=== PATIENT | female | born 1945 | race Hispanic/Latino ===

== ENCOUNTER 2018-08-31 12:21 | Inpatient (IN) | payer MEDICARE ==
[~2018-08-31] VITALS: Ht 154.9 cm; Wt 54.0 kg
[2018-08-31] VITALS (22 sets, daily range): BP systolic 155–204; BP diastolic 51–108
[2018-08-31] MEDS ORDERED: LABETALOL HCL 5 MG/ML 20ML VIAL IV STA ×2 (12:45→13:30)
[2018-08-31] MEDS ORDERED: NITROGLYCERIN 2% OINT 1 GM PKT TOP ONE (12:45)
[2018-08-31 12:57] LABS: BASOPHILS # (AUTO) 0.1 (0.0-0.1); EOSINOPHILS # (AUTO) 0.1 (0.0-0.4); HEMATOCRIT 37.4 % (34.2-44.1); LYMPHOCYTES # (AUTO) 1.2 (1.0-3.2); MEAN CORPUSCULAR HEMOGLOBIN 30.4 pg (28-32); MEAN CORPUSCULAR HGB CONC 32.1 g/dL (31-35); MEAN CORPUSCULAR VOLUME 94.7 fL (81-99); MONOCYTES # (AUTO) 0.8 (0.2-0.8); MONOCYTES % 8.6 % (4.4-11.3); NEUTROPHILS # (AUTO) 6.7 (2.1-6.9); NEUTROPHILS % 75.1 % (38.7-80.0); PLATELET COUNT 218 x10e3/uL (140-360); RED BLOOD COUNT 3.95 x10e6/uL (3.6-5.1); RED CELL DISTRIBUTION WIDTH 15.6 % (11.7-14.4)
[2018-08-31 13:02] LABS: INR 1.05; PROTHROMBIN TIME 14.7 seconds (11.9-14.5)
[2018-08-31 13:03] LABS: PARTIAL THROMBOPLASTIN TIME 35.6 seconds (23.8-35.5)
[2018-08-31 13:13] LABS: ALBUMIN 3.8 g/dL (3.5-5.0); ALKALINE PHOSPHATASE 97 IU/L (40-150); ANION GAP 23.5 mmol/L (8-16); BLOOD UREA NITROGEN 69 mg/dL (7-26); BUN/CREATININE RATIO 8 (6-25); CALCIUM 9.3 mg/dL (8.4-10.2); CARBON DIOXIDE 24 mmol/L (22-29); CHLORIDE 94 mmol/L (98-107); CREATINE KINASE 22 IU/L (29-168); CREATININE, SERUM 8.86 mg/dL (0.57-1.11); EST GLOMERULAR FILTRATION RATE 4 ML/MIN (60-); GLUCOSE 73 mg/dL (74-118); MAGNESIUM 2.4 MG/DL (1.3-2.1); SODIUM 135 mmol/L (136-145)
--- NOTE | 2018-08-31 13:14 | Diagnostic Imaging Report ---
Examination: Single AP view of the chest. COMPARISON: None. INDICATION: Hypertension DISCUSSION: Lungs are well-inflated. Small right pleural effusion with adjacent right lower lobe airspace disease likely passive atelectasis. No consolidations. Enlargement of the cardiac silhouette with prominence of the perihilar pulmonary interstitium. No acute osseous abnormality. IMPRESSION: Enlargement of the cardiac silhouette with interstitial pulmonary edema and a small right pleural effusion. Signed by: Dr. Rizwan Valentin M.D. on 08/31/2018 1:11 PM
[2018-08-31 13:23] LABS: ALANINE AMINOTRANSFERASE < 6 IU/L (0-55)
[2018-08-31 13:24] LABS: POTASSIUM 6.5 mmol/L (3.5-5.1)
[2018-08-31] MEDS ORDERED: DEXTROSE 50% SYRINGE 50 ML IV STA (13:31)
[2018-08-31] MEDS ORDERED: SODIUM BICARBONATE 8.4% INJ 50 ML SYR IV STA (13:31)
--- NOTE | 2018-08-31 13:36 | Diagnostic Imaging Report ---
History:Hypertension, AMS Comparison studies:None Technique: Axial images were obtained from the skull base to the vertex. Coronal and sagittal images reconstructed from the axial data. Intravenous contrast: None Dose modulation, iterative reconstruction, and/or weight based adjustment of the mA/kV was utilized to reduce the radiation dose to as low as reasonably achievable. Findings: Scalp/skull: No abnormalities. Extra-axial spaces: No masses. No fluid collections. Brain sulci: Mildly prominent. Ventricles: Mild compensatory dilatation. No hydrocephalus. Parenchyma: Scattered small hypodensities in the supratentorial white matter are small vessel ischemic changes. Cortical-based hypodensity at the left cuneus with associated volume loss. Chronic lacunar infarcts at the left paracentral nicki, right cerebellum, left globus pallidus , bilateral putamina and thalami. No masses, hemorrhage or acute cortical vascular insults. Sellar/suprasellar region: No abnormalities. Craniocervical junction: Patent foramen magnum. No Chiari one malformation. Incidental findings: Atherosclerotic calcifications in the carotid siphons . Impression: No acute abnormalities. Chronic findings: 1. Mild generalized volume loss. 2. Mild supratentorial white matter small vessel ischemic changes. 3. Remote insult in the left cuneus in the [employer] DELIV[employer] distribution. 4. Multiple posterior fossa bilateral basal ganglia chronic lacunar infarcts. Signed by: DR Rick Tripp M.D. on 08/31/2018 1:33 PM
[2018-08-31] MEDS ORDERED: CLONIDINE HCL 0.1 MG TAB PO ONE ×2 (13:45→14:00)
[2018-08-31] MEDS ORDERED: CALCIUM GLUCONATE 10% INJ 4.65 MEQ in SODIUM CHLORIDE 0.9% 50ML 50 ML IV ONE (13:45)
[2018-08-31] MEDS ORDERED: INSULIN REGULAR, HUMAN 100 UNIT/1 ML 3ML VIAL IV ONE (13:45)
[2018-08-31] MEDS ORDERED: CLONIDINE HCL 0.1 MG TAB ONE (13:57)
[2018-08-31] MEDS ORDERED: SODIUM BICARBONATE 8.4% SYRING 50 ML ONE (13:57)
[2018-08-31] MEDS ORDERED: ONDANSETRON HCL INJ 2 MG/ML VIAL IV PRN ×2 (14:45→19:15)
[2018-08-31] MEDS ORDERED: DEXTROSE 50% SYRINGE 50 ML IV PRN ×2 (14:45→19:15)
[2018-08-31 14:46] LABS: CLARITY,URINE CLEAR (CLEAR); COLOR,URINE YELLOW (YELLOW); LEUKOCYTE ESTERASE ,URINE NEGATIVE (NEGATIVE); NITRITE,URINE NEGATIVE (NEGATIVE); PROTEIN,URINE DIPSTICK 2+ (NEGATIVE)
[2018-08-31 14:47] LABS: BILIRUBIN,URINE NEGATIVE (NEGATIVE); KETONES,URINE NEGATIVE (NEGATIVE); URINE UROBILINOGEN 0.2 mg/dL (0.2 - 1)
[2018-08-31 14:53] LABS: EPITHELIAL CELLS,URINE FEW /LPF; RBC,URINE 0-5 /HPF (0-5)
--- OUTSIDE RECORDS SUMMARY | 2018-08-31 14:56 | XMS REPORT ---
[facility] Address Unknown Phone Unavailable Care Team Providers Care Meat Stuffer Name Role Phone Roc JIMENES Unavailable Unavailable Problems This patient has no known problems. Allergies, Adverse Reactions, Alerts This patient has no known allergies or adverse reactions. Medications This patient has no known medications. Results Test Description Test Time Test Comments Text Results Atomic Results Result Comments CT BRAIN WO 2018-08-31 13:27:00 [facility] [address] [address] Patient Name: CHRIS MATIAS MR #: [id number] : 1945 Age/Sex: 72/F Req #: [id number] Adm Physician: Ordered by: ISAAC JIMENES MD Report #: [id number] Location: ER Room/Bed: Procedure: [id number] CT/CT BRAIN WO Exam Date: 08/31/18 Exam Time: 1309 REPORT STATUS: Signed History:Hypertension, AMS Comparison studies:None Techn ique: Axial images were obtained from the skull base to the vertex. Coronal and sagittal images reconstructed from the axial data. Intravenous contrast: None Dose modulation, iterative reconstruction, and/or weight based adjustment of the mA/kV was utilized to reduce the radiation dose to as low as reasonably achievable. Findings: Scalp/skull: No abnormalities. Extra-axial spaces: No masses. No fluid collections. Brain sulci: Mildly prominent. Ventricles: Mild compensatory dilatation. No hydrocephalus. Parenchyma: Scattered small hypodensities in the supratentorial white matter are small vessel ischemic changes. Cortical-based hypodensity at the left cuneus with associated volume loss. Chronic lacunar infarcts at the left paracentral nicki, right cerebellum, left globus pallidus , bilateral putamina and thalami. No masses, hemorrhage or acute cortical vascular insults. Sellar/suprasellar region: No abnormalities. Craniocervical junction: Patent foramen magnum. No Chiari one malformation. Incidental findings: Atherosclerotic calcifications in the carotid siphons . Impression: No acute abnormalities. Chronic findings: 1. Mild generalized volume loss. 2. Mild supratentorial white matter small vessel ischemic changes. 3. Remote insult in the left cuneus in the [employer] distribution. 4. Multiple posteri or fossa bilateral basal ganglia chronic lacunar infarcts. Signed by: DR Rick Tripp M.D. on 08/31/2018 1:33 PM Dictated By: RICK BIRMINGHAM MD Transcribed By: CRYSTAL on 08/31/18 1333 COPY TO: ISAAC JIMENES MD CHEST SINGLE (PORTABLE) 2018-08-31 13:09:00 [address] [place] [address] Patient Name: CHRIS MATIAS MR #: [id number] : 1945 Age/Sex: 72/F Req #: [id number] Adm Physician: Ordered by: ISAAC JIMENES MD Report #: [id number] Location: ER Room/Bed: Procedure: [id number] DX/CHEST SINGLE (PORTABLE) Exam Date: 08/31/18 Exam Time: 1250 REPORT STATUS: Signed Examination: Single AP view of the chest. COM PARISON: None. INDICATION: Hypertension DISCUSSION: Lungs are well-inflated. Small right pleural effusion with adjacent right lower lobe airspace disease likely passive atelectasis. No consolidations. Enlargement of the cardiac silhouette with prominence of the perihilar pulmonary interstitium. No acute osseous abnormality. IMPRESSION: Enlargement of the cardiac silhouette with interstitial pulmonary edema and a small right pleural effusion. Signed by: Dr. Cristian Cordon M.D. on 08/31/2018 1:11 PM Dictated By: CRISTIAN CORDON MD 1311 Transcribed By: CRYSTAL on 08/31/18 1311 COPY TO: ISAAC JIMENES MD
[2018-08-31] MEDS: NICARDIPINE 20MG/200ML PREMIX 200 ML IV SCH (15:11)
[2018-08-31] MEDS ORDERED: HYDROMORPHONE 2MG/ML 2 MG/ML ML IV ONE (15:15)
[2018-08-31] MEDS: INSULIN LISPRO 100 UNIT/1 ML 3ML VIAL SQ SCH ×2 (16:30→21:00)
[2018-08-31] MEDS: KETOROLAC TROMETHAMINE 30 MG/ML VIAL IV PRN ×2 (16:52→22:26)
--- NOTE | 2018-08-31 16:57 | Consultation ---
DATE OF CONSULTATION: August 31, 2018 NEPHROLOGY CONSULTATION REQUESTING PHYSICIAN: Dr. Summers. REASON FOR CONSULTATION: ESRD management. Thank you for allowing us to participate in Ms. Escobar's care. HISTORY OF PRESENT ILLNESS: This is a 72-year-old female with history of end-stage renal disease. She is quite a poor historian, and I am unable to get much of a story from her except that she was refusing to go to dialysis. Found to have a high potassium, blood pressures systolics well over 400. Potassium was 6.5. Initially responded to p.o. clonidine as there was concern she might be rebounding but now is back on Cardene drip. She is to go to the ICU. She says her breathing is okay. She is not sure of who her regular doctor is. Denied any leg swelling, denied any chest pain. She is unable to tell me who her regular kidney doctor is at this time and actually unable to answer most of our questions including why she refused to go to dialysis. PAST HISTORY: Based on chart, 1. ESRD. 2. Type 2 diabetes. 3. Hypertension. 4. History of left upper extremity fistula. FAMILY HISTORY: She is not sure of kidney problems. REVIEW OF SYSTEMS: Unable to obtain as most of the time she does not answer my questions. medication pls see list SOCIAL HISTORY: Apparently was at [facility]. Beyond that, I am unable to obtain more. PHYSICAL EXAMINATION GENERAL: Lying in bed. No distress. VITAL SIGNS: Blood pressure initially was 213/106, coming down to 147/75. Temperature is 98.6. Pulse 68, regular. O2 sat is 100% on oxygen. Respiratory rate 14. HEENT: Grossly atraumatic. Abrasion on the face. NECK: Neck veins around 8 cm. CHEST: Faint crackles at the bases. CARDIAC: S4 is present. Normal heart tones, sounds regular. EXTREMITIES: Trace sacral edema. ABDOMEN: Benign. NEUROLOGIC: Eyes are open. When she does speak, this speech often sounds dysarthric. She is really unable to answer questions and appears confused. SKIN: Abrasion on the face. LAB: Sodium 135, potassium 6.5, serum CO2 24, creatinine 0.86, BUN 69, calcium 9.3. ASSESSMENT 1. End-stage renal disease, fluid overload. See chest x-ray. 2. Hypertension with emergency. Unclear if the apparent encephalopathy is actually from the hypertension. 3. Hyperkalemia which is severe and potentially life-threatening. PLAN: Hemodialysis both today and tomorrow. We do need to take some fluid off. Please see my orders for details. Discussed with the dialysis nurse. She is started on a Cardene drip. Will add terazosin 5 mg nightly p.o. to start with. For the time-being, hold off on any NARDA inhibitors and ARBs. Will follow along. Sincerely, Job#: [id number] EV MTDD
[2018-08-31] MEDS ORDERED: ACETAMINOPHEN 325 MG TAB PO PRN (19:15)
[2018-08-31 20:01] LABS: CREATINE KINASE MB 0.9 ng/mL (0-5.0)
--- NOTE | 2018-08-31 20:30 | History and Physical ---
CHIEF COMPLAINT: Confusion and volume overload missing dialysis. HISTORY OF PRESENT ILLNESS: This is a 72-year-old female with known history of ESRD on dialysis, history of CVA in the past who has, according to the nursing staff, right lower extremity deficit from a prior stroke, hypothyroidism, hypertension, type 2 diabetes who presents to the ED from [facility]. Due to underlying of the blood pressure, concerns for underlying encephalopathy. The patient was evaluated in the ICU, currently alert, awake and talking to me on examination. Her blood pressure was elevated at 250s in that ER. She was given a nitroglycerin paste patch with much improvement in blood pressure. Cardene drip was discontinued. Patient was evaluated in the ICU. She is alert and oriented x3 with no other issues. She reports that she has not been receiving dialysis because she refuses. She also reports that she has [facility] because she does not like the food. The patient's vital signs are stable at this current moment with the blood pressure systolic in the 160s. REVIEW OF SYSTEMS: Pertinent positives with questionable encephalopathy. Pertinent negatives: Denies any chest pain, palpitations, nausea, vomiting, diarrhea, dysuria, hematuria, frequency, urgency, lightheadedness, dizziness, abdominal pain, headaches, shortness of breath, cough, congestion, fever, or any other complaints. The rest of the 14-point review of systems have been reviewed with the patient and they are negative. ALLERGIES: NO KNOWN DRUG ALLERGIES. HOME MEDICATIONS: Not available at this time. PAST MEDICAL HISTORY: Type 2 diabetes. Hypertension. Hypothyroidism. Basal cell carcinoma of the face, hyperlipidemia, history of CVAs in the past history with cerebral infarcts, end-stage renal disease on HD, anemia of end-stage renal disease. PAST SURGICAL HISTORY: Has left upper extremity AV fistula. FAMILY HISTORY: Hypertension, diabetes. SOCIAL HISTORY: No drugs, no alcohol and does not smoke. She currently lives in a jail. PHYSICAL EXAM: VITAL SIGNS: Temperature 98.2, pulse 68, respiratory rate 18, blood pressure at 1530 was 147/75. She is on 100% room air. GENERAL: In no acute distress, alert and oriented x3, cooperative on examination. HEENT: Head is normocephalic, atraumatic. Eyes: Pupils equal, round and reactive to light bilaterally. Extraocular movements intact bilaterally. Throat with no evidence of erythema or exudates in the posterior pharynx. Has poor dentition. NECK: Supple with good range of motion. PULMONARY: Clear to auscultation bilaterally. No wheezing, no rales, no rhonchi or crackles appreciated. CARDIOVASCULAR: Positive S1 and S2, no murmurs, rubs or gallops appreciated. ABDOMEN: Soft, nondistended, nontender on palpation. Bowel sounds were present. MUSCULOSKELETAL: Strength on the right side is about 3/5. This is chronic. Left side strength is 4/5. Upper and lower extremities. NEUROLOGIC: Has right-sided upper and lower extremity weakness 3/5. She does have some stuttering. This is an old finding with very minimal slurred speech. She is alert and oriented x3. SKIN: A lesion on the anterior aspect of her nose with a history of squamous cell carcinoma. EXTREMITIES: No edema. Good range of motion throughout. LABORATORY DATA: Lab findings show white count 8.8, hemoglobin 12, hematocrit 37 and chemistry sodium 135, potassium 6.5, chloride 94, bicarb 24, anion gap . BUN 69. Creatinine 3.8. Glucose 73. Calcium 9.2. Magnesium 2.4. Total bilirubin 1. AST 12, ALT 6. Troponin is negative. BNP 4872. Total protein 7.5. Albumin 3.8. Urinalysis is negative. Coagulation: PT 14, INR 1, PTT 35. MICROBIOLOGY: Urine cultures are pending. IMAGING STUDIES: Chest x-ray showed evidence of interstitial pulmonary edema with right small pleural effusion. CT brain showed no acute abnormalities. It showed some evidence of some chronic lacunar infarcts in the past. IMPRESSION 1. Metabolic encephalopathy, now improved, likely secondary to underlying hypertension. 2. Hypertensive emergency. 3. History of right cerebrovascular accident in the past with chronic right-sided weakness. 4. End-stage renal disease on hemodialysis with volume overload. 5. Hyperkalemia. 6. Type 2 diabetes. PLAN: At this time, the patient's encephalopathy is fine. She is alert, awake and oriented x3 and has no other issues was no evidence of any confusion. CT brain was negative. No further workup is needed in terms of encephalopathy now that she is back to normal baseline. In relation to her hypertension, she has a nitro paste patch. Currently, he blood pressure is stable. We are going to just resume her oral medications, and will add likely nifedipine XL 60 mg daily and will start that tonight. She also in relation to her old CVA, we are going to get PT and OT evaluation. Start the patient on aspirin. In relation to her dialysis, she does have hyperkalemia and she will be getting emergent dialysis tonight, with volume removal which will put the blood pressure low. She also has underlying hyperkalemia which we will medically manage in the ER, dialysis later tonight by nephrology. In relation to her diabetes, we will start her on insulin sliding scale and start her on a diabetic diet and renal diet. Otherwise, will continue with the same plan of care and will monitor her very closely. I spent more than 35 minutes of critical care time on this case. Job#: [id number]
[2018-08-31] MEDS: TERAZOSIN HCL 5 MG CAP PO SCH (21:00)
[2018-08-31] MEDS: FAMOTIDINE 20 MG/2 ML VIAL IV SCH (22:26)
[2018-08-31] MEDS: HYDRALAZINE HCL 20 MG/ML VIAL IV PRN (22:35)
[2018-09-01] VITALS (52 sets, daily range): BP systolic 119–200; BP diastolic 44–102
[2018-09-01] MEDS: HYDRALAZINE HCL 20 MG/ML VIAL IV PRN ×2 (03:37→16:31)
[2018-09-01] MEDS: MORPHINE SULFATE 2 MG/ML SYR IV PRN (04:24)
[2018-09-01] MEDS: NICARDIPINE 20MG/200ML PREMIX 200 ML IV SCH (04:32)
[2018-09-01 04:48] LABS: BASOPHILS # (AUTO) 0.1 (0.0-0.1); BASOPHILS % 1.5 % (0.0-1.0); EOSINOPHILS # (AUTO) 0.1 (0.0-0.4); EOSINOPHILS % 1.2 % (0.0-6.0); HEMATOCRIT 33.5 % (34.2-44.1); HEMOGLOBIN 10.7 g/dL (12.0-16.0); LYMPHOCYTES # (AUTO) 0.7 (1.0-3.2); LYMPHOCYTES % 10.4 % (18.0-39.1); MEAN CORPUSCULAR HEMOGLOBIN 30.6 pg (28-32); MEAN CORPUSCULAR HGB CONC 31.9 g/dL (31-35); MEAN CORPUSCULAR VOLUME 95.7 fL (81-99); MONOCYTES # (AUTO) 0.7 (0.2-0.8); MONOCYTES % 11.5 % (4.4-11.3); NEUTROPHILS # (AUTO) 4.8 (2.1-6.9); NEUTROPHILS % 74.9 % (38.7-80.0); PLATELET COUNT 184 x10e3/uL (140-360); RED CELL DISTRIBUTION WIDTH 15.9 % (11.7-14.4)
[2018-09-01 05:52] LABS: ALBUMIN 3.2 g/dL (3.5-5.0); ALBUMIN/GLOBULIN RATIO 0.9 (0.8-2.0); ALKALINE PHOSPHATASE 81 IU/L (40-150); ANION GAP 20.8 mmol/L (8-16); BLOOD UREA NITROGEN 40 mg/dL (7-26); BUN/CREATININE RATIO 7 (6-25); CALCIUM 9.1 mg/dL (8.4-10.2); CARBON DIOXIDE 24 mmol/L (22-29); CHLORIDE 99 mmol/L (98-107); CHOL/HDL RATIO 3.1 (3.0-3.6); CHOLESTEROL 144 MD/DL (0-199); CREATININE, SERUM 6.01 mg/dL (0.57-1.11); EST GLOMERULAR FILTRATION RATE 7 ML/MIN (60-); GLUCOSE 82 mg/dL (74-118); HDL CHOLESTEROL 46 MG/DL (40-60); LDL CHOLESTEROL 85 MG/DL (60-130); POTASSIUM 4.8 mmol/L (3.5-5.1); SODIUM 139 mmol/L (136-145); TRIGLYCERIDES 66 MG/DL (0-149)
[2018-09-01 06:20] LABS: ALANINE AMINOTRANSFERASE < 6 IU/L (0-55)
[2018-09-01] MEDS: INSULIN LISPRO 100 UNIT/1 ML 3ML VIAL SQ SCH ×4 (07:30→20:19)
[2018-09-01] MEDS ORDERED: NIFEDIPINE CR 30 MG TAB PO SCH ×2 (09:00→14:00)
[2018-09-01] MEDS ORDERED: ASPIRIN 325 MG TAB PO SCH (09:00)
[2018-09-01] MEDS: FAMOTIDINE 20 MG/2 ML VIAL IV SCH ×2 (09:30→20:19)
[2018-09-01] MEDS: ASPIRIN 81 MG CHEW TAB PO SCH (09:30)
[2018-09-01] MEDS ORDERED: HEPARIN SOD (PORCINE) 1000 UNIT/ML SDV ONE (09:52)
--- NOTE | 2018-09-01 11:04 | Progress Note ---
DATE: September 01, 2018 INTERNAL MEDICINE PROGRESS NOTE SUBJECTIVE: Patient's blood pressure is much better. We are going to discontinue the Cardene drip. She reports having a headache which is likely due to the change in blood pressure. She did receive dialysis last night with increased ultrafiltration. PHYSICAL EXAM VITAL SIGNS: Temperature is 98.6, pulse 74, respiratory rate is 18, blood pressure was 136/53, pulse ox 96% on 2 L nasal cannula. GENERAL: Not in acute distress, alert and oriented x3, cooperative on examination. HEENT: Head normocephalic, atraumatic. Eyes: Pupils equal, round, and reactive to light bilaterally. Extraocular movements intact bilaterally. NECK: Supple with good range of motion. THROAT: No evidence of any erythema or exudates in the posterior pharynx. Has poor dentition. PULMONARY: Clear to auscultation bilaterally. No wheezing, no rales, no rhonchi, no crackles appreciated. CARDIOVASCULAR: Positive S1 and S2. No murmurs, rubs, or gallops appreciated. ABDOMEN: Soft, nondistended, nontender to palpation. Bowel sounds present. MUSCULOSKELETAL: She has right-sided weakness possibly 2/5 on the right upper and lower extremities. NEUROLOGICAL: Has right upper and lower extremity weakness due to a prior CVA. SKIN: Intact. Warm to touch. Good cap refill. PSYCHIATRIC: Normal affect and mood. EXTREMITIES: No edema. Good range of motion throughout. LAB FINDINGS: Show white count 6.4, hemoglobin 10.7, hematocrit is 33.5, platelets of 184,000. Coagulation: PT 14.7, INR 1.05, PTT 35.6. Chemistry: Sodium 139, potassium is 4.8, chloride is 99, bicarb is 24, anion gap of 20, BUN is 40, creatinine is 6, glucose is 82. Total protein 6.6, albumin 3.2. Intact PTH is pending. Urinalysis negative. Hepatitis panel is pending. MICROBIOLOGY: Urine cultures show no growth. IMAGING STUDIES: None. IMPRESSION 1. Metabolic encephalopathy secondary to hypotension, now resolved. 2. Hypertensive emergency, improved. 3. History of right cerebrovascular accident in the past with right upper and lower extremity weakness, could be chronic with residual defects. 4. End-stage renal disease on hemodialysis with volume overload. 5. Hyperkalemia. 6. Type 2 diabetes. 7. Basal cell carcinoma of the nose. PLAN: At this time, patient received dialysis yesterday. I am not sure if she is scheduled for dialysis today but nephrology is consulted and following accordingly. We are going to stop the Cardene drip. I discussed with the nurse to monitor her blood pressure as her current systolic blood pressure is in the 130s, 140s, and 150s, and we are going to monitor that closely. If it goes much higher than the 150s, we are going to initiate a low-dose medication for her blood pressure to avoid hypotension. Our goal is to maintain her blood pressure in the 170s because of her chronic high blood pressure on arrival. We will continue with her home medications including aspirin. Her potassium is much improved. We did get PT and OT to evaluate and treat. We will continue to monitor very closely. She is still on a renal diet as well. Job#: [id number] KRISTINA
[2018-09-01] MEDS: NIFEDIPINE CR 30 MG TAB PO SCH (19:19)
[2018-09-01] MEDS: TERAZOSIN HCL 5 MG CAP PO SCH (20:19)
[2018-09-02] VITALS (45 sets, daily range): BP systolic 110–171; BP diastolic 54–87
[2018-09-02 04:49] LABS: ANION GAP 17.3 mmol/L (8-16); CALCIUM 8.9 mg/dL (8.4-10.2); CREATININE, SERUM 3.92 mg/dL (0.57-1.11); POTASSIUM 4.3 mmol/L (3.5-5.1)
[2018-09-02 06:42] LABS: BASOPHILS # (AUTO) 0.1 (0.0-0.1); BASOPHILS % 1.3 % (0.0-1.0); EOSINOPHILS # (AUTO) 0.1 (0.0-0.4); EOSINOPHILS % 3.3 % (0.0-6.0); HEMATOCRIT 33.3 % (34.2-44.1); HEMOGLOBIN 10.5 g/dL (12.0-16.0); LYMPHOCYTES % 26.1 % (18.0-39.1); MEAN CORPUSCULAR HEMOGLOBIN 30.3 pg (28-32); MEAN CORPUSCULAR HGB CONC 31.5 g/dL (31-35); MEAN CORPUSCULAR VOLUME 96.2 fL (81-99); MONOCYTES # (AUTO) 0.7 (0.2-0.8); MONOCYTES % 17.5 % (4.4-11.3); NEUTROPHILS % 51.5 % (38.7-80.0); PLATELET COUNT 191 x10e3/uL (140-360); RED BLOOD COUNT 3.46 x10e6/uL (3.6-5.1); RED CELL DISTRIBUTION WIDTH 15.8 % (11.7-14.4)
[2018-09-02] MEDS: INSULIN LISPRO 100 UNIT/1 ML 3ML VIAL SQ SCH ×2 (07:28→11:30)
[2018-09-02] MEDS: FAMOTIDINE 20 MG/2 ML VIAL IV SCH ×2 (08:35→21:55)
[2018-09-02] MEDS: ASPIRIN 81 MG CHEW TAB PO SCH (08:35)
[2018-09-02] MEDS: NIFEDIPINE CR 30 MG TAB PO SCH (08:43)
[2018-09-02] MEDS ORDERED: NIFEDIPINE CR 30 MG TAB PO SCH (09:00)
--- NOTE | 2018-09-02 10:14 | Progress Note ---
DATE: September 02, 2018 MEDICINE PROGRESS NOTE SUBJECTIVE: Patient is doing well today with no complaints. Her blood pressure is much controlled. She is tolerating diet. She refuses to go back to her previous half-way. OBJECTIVE VITAL SIGNS: Temperature 98.9, pulse 85, respiratory rate 16, blood pressure 150/72, and pulse ox 98% on room air. GENERAL: Not in acute distress. Alert and oriented times 3. Cooperative on examination. HEENT: Head is normocephalic and atraumatic. Eyes: Pupils equal, round and reactive to light bilaterally. Extraocular movements intact bilaterally. NECK: Supple. Good range of motion. Throat with no evidence of any erythema or exudates in the posterior pharynx. Has poor dentition. PULMONARY: Clear to auscultation bilaterally. No wheezing. No rales. No rhonchi. No crackles appreciated. CARDIOVASCULAR: Positive S1 and S2. No murmurs, rubs or gallops appreciated. ABDOMEN: Soft, nondistended and nontender to palpation. Bowel sounds present. MUSCULOSKELETAL: Strength is 5/5 throughout. No evidence of any muscle deficit on examination. No weakness appreciated. NEUROLOGICAL: Cranial nerves II-XII are grossly intact. No evidence of any neurological deficits on exam. SKIN: Intact. Warm to touch. Good cap refill. PSYCHIATRIC: Normal affect and mood. EXTREMITIES: No edema. Good range of motion throughout. LAB FINDINGS: Show the white count is 3.9, hemoglobin 10.5, hematocrit 33, and platelets of 191,000. Chemistry: Sodium 140, potassium 4.3, chloride 101, bicarb 26, anion gap 17, BUN is 22, creatinine is 3.9, glucose is 89. MICROBIOLOGY: Urine cultures were no growth. IMAGING STUDIES: None. IMPRESSION 1. Metabolic encephalopathy secondary to uremia, now all resolved. 2. Hypertension emergency, resolved. 3. History of cerebrovascular accident in the past with right upper and lower extremity weakness, residual and chronic. 4. End-stage renal disease with volume overload. 5. Hyperkalemia, resolved. 6. Type 2 diabetes. 7. Basal cell carcinoma of the nose. PLAN: The patient is doing well. Nephrology is following for HD. She is off Cardene drip. She is on nifedipine XL with much improved blood pressure. I am okay with maintaining a goal blood pressure between 160-170 as the patient probably lives in the 200s. Then over time will try to lower her blood pressure over the next several weeks. Otherwise, we are going to resume same home medications. Continue with PT and OT. The patient wants to go to a different half-way, which I discussed with the nurse and talked to case management. Job#: [id number] FRIEDA
[2018-09-02] MEDS: NICARDIPINE 20MG/200ML PREMIX 200 ML IV SCH (13:40)
[2018-09-02] MEDS: TERAZOSIN HCL 5 MG CAP PO SCH (21:55)
[2018-09-03] VITALS (8 sets, daily range): BP systolic 150–173; BP diastolic 74–97
[2018-09-03 06:06] LABS: ANION GAP 17.7 mmol/L (8-16); CALCIUM 8.7 mg/dL (8.4-10.2); CREATININE, SERUM 5.78 mg/dL (0.57-1.11); POTASSIUM 4.7 mmol/L (3.5-5.1)
[2018-09-03] MEDS: FAMOTIDINE 20 MG/2 ML VIAL IV SCH ×2 (08:40→21:22)
[2018-09-03] MEDS: NIFEDIPINE CR 30 MG TAB PO SCH (08:40)
[2018-09-03] MEDS: ASPIRIN 81 MG CHEW TAB PO SCH (08:40)
--- NOTE | 2018-09-03 10:34 | Progress Note ---
DATE: September 03, 2018 MEDICINE PROGRESS NOTE SUBJECTIVE: Patient is doing well today, with no complaints. Blood pressure is much improved. It is in the 160s, which is appropriate for her considering she has got blood pressures in the 200s. PHYSICAL EXAMINATION VITAL SIGNS: Temperature is 96.9, pulse 85, respiratory rate is 16, blood pressure 162/83, pulse ox 96% on room air. GENERAL: Not in acute distress, alert and oriented x3, cooperative on examination. HEENT: Head normocephalic, atraumatic. Eyes; pupils equal and reactive to light. Bilateral extraocular movements intact bilaterally. Throat with no evidence of any erythema or exudates in the posterior pharynx. Has poor dentition. NECK: Supple with good range of motion. PULMONARY: Clear to auscultation bilaterally. No wheezing. No rales. No rhonchi. No crackles appreciated. CARDIOVASCULAR: Positive S1 and S2. No murmurs, rubs or gallops appreciated. ABDOMEN: Soft, nondistended, and nontender to palpation. Bowel sounds present. MUSCULOSKELETAL: Strength is 5/5 throughout. No evidence of any muscular deficit on examination. No weakness appreciated. NEUROLOGICAL: Cranial nerves II-XII are grossly intact. No evidence of any neurological deficits on exam. SKIN: Intact. Warm to touch. Good cap refill. PSYCHIATRIC: Normal affect and mood. EXTREMITIES: No edema. Good range of motion throughout. LABS: Chemistry: Sodium 137, potassium 4.7, chloride 98, bicarb 23, anion gap is 15, BUN is 42, creatinine is 5.7, glucose is 82. MICROBIOLOGY: Negative urine cultures. IMAGING: None. IMPRESSION 1. Metabolic encephalopathy secondary to uremia, resolved. 2. Hypertension emergency, resolved. 3. History of cerebrovascular accident in the past with right-sided residual weakness. 4. End-stage renal disease, on hemodialysis. 5. Mild hyperkalemia, resolved. 6. Type 2 diabetes. 7. Basal cell carcinoma. PLAN: At this time, she is going to receive dialysis today. Her blood pressure is much improved. Our goal blood pressure for this patient is about 160 to 170. We will continue with nifedipine XL. Medically, she is cleared and stable for discharge, but the patient does not want to go to the [facility]. This was discussed with case management. Once we are able to find a place for her, she will be good to go. Job#: [id number] AYLIN
[2018-09-03] MEDS ORDERED: SODIUM CHLORIDE 0.9% 1000ML 2,000 ML IV PRN (14:00)
[2018-09-03] MEDS ORDERED: SODIUM CHLORIDE 0.9% 1000ML 2,000 ML ONE (16:38)
[2018-09-03] MEDS: TERAZOSIN HCL 5 MG CAP PO SCH (21:22)
[2018-09-04] VITALS (11 sets, daily range): BP systolic 146–209; BP diastolic 71–103
[2018-09-04] MEDS: HYDRALAZINE HCL 20 MG/ML VIAL IV PRN ×2 (05:55→11:51)
[2018-09-04] MEDS: ASPIRIN 81 MG CHEW TAB PO SCH (08:10)
[2018-09-04] MEDS: FAMOTIDINE 20 MG/2 ML VIAL IV SCH ×2 (08:10→21:00)
[2018-09-04] MEDS: NIFEDIPINE CR 30 MG TAB PO SCH ×3 (08:10→16:46)
--- NOTE | 2018-09-04 10:00 | Progress Note ---
DATE: September 04, 2018 SUBJECTIVE: Patient is doing well today, with no other complaints. Her blood pressure is elevated at 209 systolically, in which I adjusted her nifedipine to twice daily. OBJECTIVE VITAL SIGNS: Temperature is 97.2, pulse 85, respiratory rate is 20, blood pressure is 199/93, pulse ox 99% on room air. GENERAL: Not in acute distress, alert and oriented x3, cooperative on examination. HEENT: Head normocephalic, atraumatic. Eyes; pupils equal, round, and reactive to light bilaterally. Extraocular movements intact bilaterally. Throat; no evidence of any erythema or exudates in the posterior pharynx. Has poor dentition. NECK: Supple with good range of motion. PULMONARY: Clear to auscultation bilaterally. No wheezing. No rales. No rhonchi. No crackles appreciated. CARDIOVASCULAR: Positive S1 and S2. No murmurs, rubs, or gallops appreciated. ABDOMEN: Soft, nondistended, nontender to palpation. Bowel sounds present. MUSCULOSKELETAL: Strength is 5/5 throughout. No evidence of any muscle deficit on examination. No weakness appreciated. NEUROLOGICAL: Cranial nerves II-XII are grossly intact. No evidence of any neurological deficits on exam. SKIN: Intact. Warm to touch. Good cap refill. PSYCHIATRIC: Normal affect and mood. EXTREMITIES: No edema. Good range of motion throughout. LABS: None. MICROBIOLOGY: None. IMAGING STUDIES: None. IMPRESSION 1. Metabolic encephalopathy secondary to uremia, resolved. 2. Hypertension emergency, still elevated blood pressure. We will adjust medications. 3. History of cerebrovascular accident in the past with right-sided residual weakness. 4. End-stage renal disease, on dialysis. 5. Mild hypokalemia. 6. Type 2 diabetes. 7. Basal cell carcinoma of the nose. PLAN: At this time, her blood pressure is elevated, in which we will increase the nifedipine XL 60 mg to twice daily now. I discussed this with the nursing staff. Patient does not want to go back to her original skilled nursing, but I also discussed that with case management this morning as well. It seems that [facility] does not have a skilled nursing aspect and instead has a SNF, but I am not sure exactly what the patient is stating. I will have case management figure that out, but medically, hopefully by tomorrow she is cleared to go home. Job#: [id number] KRISTINA
[2018-09-04] MEDS: TERAZOSIN HCL 5 MG CAP PO SCH (21:00)
[2018-09-05 00:31] VITALS: BP 150/73
[2018-09-05 04:00] VITALS: BP 130/61
[2018-09-05 05:16] LABS: BASOPHILS # (AUTO) 0.1 (0.0-0.1); BASOPHILS % 1.5 % (0.0-1.0); EOSINOPHILS # (AUTO) 0.2 (0.0-0.4); EOSINOPHILS % 4.4 % (0.0-6.0); HEMATOCRIT 32.7 % (34.2-44.1); HEMOGLOBIN 10.7 g/dL (12.0-16.0); LYMPHOCYTES # (AUTO) 1.5 (1.0-3.2); LYMPHOCYTES % 36.4 % (18.0-39.1); MEAN CORPUSCULAR HEMOGLOBIN 30.5 pg (28-32); MEAN CORPUSCULAR HGB CONC 32.7 g/dL (31-35); MEAN CORPUSCULAR VOLUME 93.2 fL (81-99); MONOCYTES # (AUTO) 0.6 (0.2-0.8); MONOCYTES % 14.7 % (4.4-11.3); NEUTROPHILS # (AUTO) 1.8 (2.1-6.9); NEUTROPHILS % 42.8 % (38.7-80.0); PLATELET COUNT 194 x10e3/uL (140-360); RED BLOOD COUNT 3.51 x10e6/uL (3.6-5.1); RED CELL DISTRIBUTION WIDTH 15.6 % (11.7-14.4)
[2018-09-05 05:39] LABS: ALANINE AMINOTRANSFERASE < 6 IU/L (0-55); ALBUMIN 3.1 g/dL (3.5-5.0); ALKALINE PHOSPHATASE 67 IU/L (40-150); ANION GAP 16.9 mmol/L (8-16); BLOOD UREA NITROGEN 36 mg/dL (7-26); BUN/CREATININE RATIO 7 (6-25); CALCIUM 8.7 mg/dL (8.4-10.2); CARBON DIOXIDE 26 mmol/L (22-29); CHLORIDE 97 mmol/L (98-107); CREATININE, SERUM 5.14 mg/dL (0.57-1.11); EST GLOMERULAR FILTRATION RATE 8 ML/MIN (60-); GLUCOSE 92 mg/dL (74-118); POTASSIUM 4.9 mmol/L (3.5-5.1); SODIUM 135 mmol/L (136-145)
[2018-09-05] MEDS ORDERED: POLYETHYLENE GLYCOL 3350 17 GM PACK PO PRN (08:30)
[2018-09-05 08:34] VITALS: BP 161/75
[2018-09-05] MEDS: ASPIRIN 81 MG CHEW TAB PO SCH (08:44)
[2018-09-05] MEDS: FAMOTIDINE 20 MG/2 ML VIAL IV SCH (08:44)
[2018-09-05] MEDS: NIFEDIPINE CR 30 MG TAB PO SCH ×2 (08:44→16:43)
[2018-09-05] MEDS: HYDRALAZINE HCL 20 MG/ML VIAL IV PRN ×2 (08:44→16:44)
[2018-09-05] MEDS ORDERED: ONDANSETRON HCL 4 MG ORAL DISINTEGRATING TAB PO PRN (10:00)
[2018-09-05] MEDS ORDERED: ACETAMINOPHEN/CODEINE 300MG - 30MG TAB PO PRN (10:00)
[2018-09-05] MEDS ORDERED: SENNOSIDES 8.6 MG TAB PO SCH (11:00)
[2018-09-05] MEDS ORDERED: LIDOCAINE 5% PATCH TP SCH (11:00)
[2018-09-05] MEDS ORDERED: CLOPIDOGREL BISULFATE 75 MG TAB PO SCH (11:00)
[2018-09-05 12:06] VITALS: BP 171/84
[2018-09-05] MEDS: CALCIUM ACETATE 667 MG GELCAP PO SCH ×2 (12:08→16:00)
--- NOTE | 2018-09-05 13:57 | Discharge Summary ---
FINAL DISCHARGE DIAGNOSES 1. Metabolic encephalopathy secondary to underlying uremia and hypertension encephalopathy, all resolved. 2. Hypertension emergency, improved and resolved. 3. History of cerebrovascular accident in the past with chronic right-sided residual weakness. 4. End-stage renal disease on dialysis. 5. Type 2 diabetes. 6. Basal cell carcinoma of the nose. 7. Medically debilitated. CONSULTANTS: We had Nephrology. VITAL SIGNS: Temperature is 96.8, pulse 86, respiratory rate is 18, blood pressure is 161/75, pulse ox 99% on room air. LAB FINDINGS: Show white count 4, hemoglobin 10.7, hematocrit is 32.7, platelets of 194. COAGULATION: PT 14.7, INR 1.05, PTT 35.6. CHEMISTRY: Sodium 135, potassium 4.9, chloride 97, bicarb 26, anion gap of 16, BUN 36, creatinine is 5.1, glucose is 92, calcium is 8.7. LFTs were normal. Albumin 3.1. Urinalysis was negative. MICROBIOLOGY: Urine cultures negative. IMAGING STUDIES: Chest x-ray shows some pulmonary edema. CT brain was negative for any acute findings. HOSPITAL COURSE: A 72-year-old female who came into the ED with underlying encephalopathy, found to have elevated blood pressure systolically in the 240s. Patient was admitted to the ICU, started on a Cardene drip, and Nephrology was consulted. Patient also had mild hyperkalemia in which the patient received dialysis on the day of admission. Nephrology was consulted and managed dialysis accordingly while in the hospital. Patient's encephalopathy improved throughout the hospital course. CT imaging was negative. The patient's blood pressure was better managed and controlled on nifedipine XL 60 mg twice daily. Patient's diabetes was well managed and controlled as well. Patient will be discharged back to [facility]. Prior to coming to this facility, this is where she was at for further rehabilitation. On discharge, vital signs stable, labs reviewed and stable. Patient seen and evaluated and examined thoroughly on the day of discharge with no new complaints. 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 She will receive dialysis prior to discharge today. MEDICATIONS: See med reconciliation form including nifedipine XL 60 mg p.o. twice daily. DISPOSITION: To assisted facility. CONDITION: Stable. DIET: Renal. In the event of any worsening symptoms, the patient advised to come back to the ED for further evaluation. Discharge summary took greater than 35 minutes. MADY RICHMOND MD Job#: [id number] EV
[2018-09-05] MEDS ORDERED: PHENYTOIN SODIUM EXT REL 100 MG CAP PO SCH (14:00)
[2018-09-05] MEDS: MORPHINE SULFATE 2 MG/ML SYR IV PRN (15:00)
[2018-09-05 16:32] VITALS: BP 154/80
[2018-09-05 16:41] VITALS: BP 193/88
[2018-09-05] MEDS ORDERED: ATORVASTATIN 40 MG TAB PO SCH (21:00)
[2018-09-05] MEDS ORDERED: ATORVASTATIN 20 MG TAB PO SCH (21:00)
[2018-09-05] MEDS ORDERED: MELATONIN 3 MG TAB PO SCH (21:00)
[2018-09-06] MEDS ORDERED: LEVOTHYROXINE SODIUM 25 MCG TABLET PO SCH (06:00)
[2018-09-06] MEDS ORDERED: LEVOTHYROXINE SODIUM 112 MCG TAB PO SCH (06:00)
== END 2018-09-05 17:27 | DRG 77 ==
LOC: ER 12:21 → ERHOLD 14:43 → ICU 16:50 → MED/SURG 09-02 15:44 → ICU 09-02 15:45 → MED/SURG 09-02 16:02
PROVIDERS: ADMIT Internal Medicine; ATTEND Internal Medicine
PROC: 5A1D70Z Performance of Urinary Filtration, Intermittent, Less than 6 Hours Per Day (ICD-10-PCS; principal; 2018-08-31)
DX: I67.4 Hypertensive encephalopathy (principal); G93.41 Metabolic encephalopathy; N18.6 End stage renal disease; I16.1 Hypertensive emergency; I69.351 Hemiplegia and hemiparesis following cerebral infarction affecting right dominant side; G93.49 Other encephalopathy; I12.0 Hypertensive chronic kidney disease with stage 5 chronic kidney disease or end stage renal disease; Z99.2 Dependence on renal dialysis; E87.5 Hyperkalemia; Z91.15 Patient's noncompliance with renal dialysis; R53.81 Other malaise; C44.311 Basal cell carcinoma of skin of nose; E11.22 Type 2 diabetes mellitus with diabetic chronic kidney disease; E78.5 Hyperlipidemia, unspecified
CPT/HCPCS: 36415; 51700; 70450; 71045; 80048; 80053; 80061; 81001; 82550; 82553; 82948; 83735; 83880; 83970; 84484; 85025; 85610; 85730; 86704; 86706; 86708; 87086; 90962; 93005; 97139; 99285; J0360; J0610; J1644; J1885; J2270; J2405; J7030; J7799